=== PATIENT | male | born 1995 | race Caucasian/White ===

== ENCOUNTER → 2021-09-08 01:19 | Outpatient (CLI) | payer OTHER, SELFPAY ==
[2021-09-08 21:22] LABS: SARS-CoV-2 RNA PCR Positive
== END ==
PROVIDERS: PCP Family Medicine; Visit Provider Internal Medicine
DX: U07.1 COVID-19 (principal)
CPT/HCPCS: C9803; U0003; U0005

== ENCOUNTER 2023-08-18 10:20 | Emergency (ER) | payer OTHER, SELFPAY ==
[2023-08-18 10:25] VITALS: BP 160/71; PULSE 95; RESP 16; TEMP 36.8; O2SAT 100
--- NOTE | 2023-08-18 11:27 | ED.GENADULT ---
HPI - General Adult General Chief complaint: Unspecified Stated complaint: REQUESTING EVAL FOR POTENTIAL RAYNAUDS Time Seen by Provider: 08/18/23 10:49 Source: patient Mode of arrival: ambulatory Limitations: no limitations History of Present Illness HPI narrative: This is a 27 year old male that presents to the ER for ulcerations on his toes. Ongoing over the last month. Reports he was sent to the ER to evaluate for Raynauds. Reports he will intermittently have color changes and cold hands and feet. This has been going on since the beginning of this year. Reports the ulcerations started about a month ago. Denies fevers. Related Data Home Medications Medication Instructions Recorded Confirmed No Home Medications 09/20/19 09/20/19 Allergies Allergy/AdvReac Type Severity Reaction Status Date / Time Sulfa (Sulfonamide Allergy Mild Rash Verified 08/18/23 10:47 Antibiotics) tramadol Allergy Mild Vomiting Verified 08/18/23 10:47 Review of Systems Review of Systems: CONSTITUTIONAL: Denies fever SKIN: Reports ulcerations NEUROLOGIC: Denies numbness All systems reviewed & are unremarkable except as noted in HPI and below PMFSH Past Medical History Medical History (Updated 08/18/23 @ 13:47 by Sandra Joyner PA-C) Neurofibromatosis (nonmalignant) Surgical History Surgical History History of surgery on arm 2015, 2018 Family History Family History Father Diabetes mellitus Social History Social History Smoking status: Never smoker Alcohol intake: current Exam Narrative: GENERAL: Well-appearing, well-nourished, and in no acute distress. HEAD: Normocephalic, atraumatic. EYES: EOMI. CHEST: No respiratory distress. HEART: Regular rate EXTREMITIES: Normal range of motion. No discoloration noted. Normal DP, and posterior tibial, and radial pulses. Ulcerations to the left 1st and 5th toes and right 2nd toe SKIN: Warm, dry, no rash. NEURO: No focal deficits. Alert and oriented x3. PSYCH: Normal mood and affect Course Course Emergency Course: patient was updated on workup and agrees with his plan of care Vital Signs Vital signs: Vital Signs Temperature 98.3 F 08/18/23 10:25 Pulse Rate 95 08/18/23 10:25 Respiratory Rate 16 08/18/23 10:25 Blood Pressure 160/71 H 08/18/23 10:25 Pulse Oximetry 100 08/18/23 10:25 Oxygen Delivery Room Air 08/18/23 10:25 Temperature 98.3 F 08/18/23 10:25 Pulse Rate 95 08/18/23 10:25 Respiratory Rate 16 08/18/23 10:25 Blood Pressure 160/71 H 08/18/23 10:25 Pulse Oximetry 100 08/18/23 10:25 Oxygen Delivery Room Air 08/18/23 10:25 Medical Decision Making MDM Narrative Medical decision making narrative: Patient presents to the emergency department for color changes to his hands and feet. Ongoing for about a year. Also reporting some ulcerations on his toes that is noted over the last month. Patient has great peripheral pulses. His extremities are warm at this time. CBC metabolic panel without concerning findings. His TSH is normal. Inflammatory markers are not elevated. Patient was updated on his workup. Instructed he should have follow-up with a vascular surgeon for further evaluation and management. He was given warnings to return to the ER Vital Signs Vital Signs: Vital Signs Temperature 98.3 F 08/18/23 10:25 Pulse Rate 95 08/18/23 10:25 Respiratory Rate 16 08/18/23 10:25 Blood Pressure 160/71 H 08/18/23 10:25 Pulse Oximetry 100 08/18/23 10:25 Oxygen Delivery Room Air 08/18/23 10:25 Temperature 98.3 F 08/18/23 10:25 Pulse Rate 95 08/18/23 10:25 Respiratory Rate 16 08/18/23 10:25 Blood Pressure 160/71 H 08/18/23 10:25 Pulse Oximetry 100 08/18/23 10:25 Oxygen Delivery Room Air
[2023-08-18 11:57] LABS: Basophils Percent Auto 0.4 % (0.2-1.2); Eosinophils Percent Auto 0.7 % (0-4.4); Hematocrit 45.5 % (42.0-52.0); Hemoglobin 15.1 g/dL (14.0-18.0); Immature Granulocyte Absolute 0.01 K/mm3 (0.00-0.031); Immature Granulocyte Percent A 0.2 % (0-0.5); Lymphocytes Absolute Auto 1.19 K/mm3 (0.9-3.2); Lymphocytes Percent Auto 21.3 % (18.3-44.2); Mean Corpuscular HGB Conc 33.2 g/dl (32-36); Mean Corpuscular Hemoglobin 29.1 pg (26-34); Mean Corpuscular Volume 87.7 fl (80-100); Mean Platelet Volume 10.4 fl (7.4-10.4); Monocytes Absolute Auto 0.5 K/mm3 (0.1-0.6); Monocytes Percent Auto 8.6 % (2.6-8.5); Neutrophils Absolute Auto 3.8 K/mm3 (1.3-6.7); Neutrophils Percent Auto 68.8 % (45.5-73.1); Platelet Count Result 206 k/mm3 (150-375); Red Blood Count 5.19 M/mm3 (4.6-6.20); White Blood Count 5.6 K/mm3 (4.5-10.0)
[2023-08-18 11:59] LABS: Appearance Urine Clear (Clear); Bilirubin Urine Negative (Negative); Blood Urine Negative (Negative); Color Urine Yellow (Yellow); Glucose Urine UA Negative (Negative); Ketones Urine Negative (Negative); Leukocyte Esterase Ur Negative LEU/UL (Negative); Nitrate Urine Negative (Negative); Protein Urine Negative (Negative); Specific Grav Ur 1.023 (1.001-1.035); Urobilinogen Urine 0.2 mg/dL (<2.0); pH Urine 6.5 (5.0-9.0)
[2023-08-18 12:01] LABS: Add Urine Microscopic? NO
[2023-08-18 12:09] LABS: Alanine Aminotransferase 75 U/L (6-50); Albumin Level 4.5 g/dL (3.5-5.1); Alkaline Phosphatase 60 U/L (38-126); Anion Gap 5 mmol/L (8-16); Aspartate Amino Transferase 38 U/L (17-59); Bilirubin,Total 0.5 mg/dL (0.2-1.3); Blood Urea Nitrogen 14 mg/dL (9-20); CRP < 0.5 mg/dL (<1.0); Calcium 9.6 mg/dL (8.4-10.2); Carbon Dioxide 29 mmol/L (22-30); Chloride 102 mmol/L (98-107); Estimated CRCL calculation 128 ml/min; Estimated Glomerular Filt Rate > 60; Glucose 101 mg/dL (65-110); Potassium 4.3 mmol/L (3.4-5.0); Sodium 136 mmol/L (137-145)
[2023-08-18 12:35] LABS: Erythrocyte Sedimentation Rate 1 mm/hr (0-20)
[2023-08-18 13:28] LABS: Thyroid Stimulating Hormone Reflex 0.754 uIU/mL (0.465-4.68)
[2023-08-18 14:17] VITALS: BP 150/75; PULSE 88; RESP 18; TEMP 36.7; O2SAT 99
== END 2023-08-18 14:19 | disposition home or self-care (01) ==
PROVIDERS: Emergency Provider Physician Assistant; PCP Internal Medicine
DX: L97.521 Non-pressure chronic ulcer of other part of left foot limited to breakdown of skin (principal)
CPT/HCPCS: 36415; 80053; 81003; 84443; 85025; 85652; 86140; 99283